=== PATIENT | male | born 1950 | race Caucasian/White ===

== ENCOUNTER 2017-02-04 09:03 | Day surgery (SDC) | payer BC, OTHER ==
[2017-01-30 11:31] VITALS: BMI 29.0
--- NOTE | 2017-01-30 12:06 | PAT Medication Instructions ---
Service Date Jan 30, 2017. Current Home Medication List Levothyroxine Sodium (Levothyroxine Sodium), 175 MCG PO QAM Multiple Vitamins W/ Minerals (Multi Complete), QAM [Collagen Injection] [benicar], 20 MG QAM Medication Instructions For Your Scheduled Surgery Collagen Injection (last done 08/2016) - Hold the following medications the morning of surgery: Benicar, 20 MG QAM Multiple Vitamins W/ Minerals (Multi Complete), QAM - Take the following medications the morning of surgery with a sip of water: Levothyroxine Sodium (Levothyroxine Sodium), 175 MCG PO QAM If you have any questions please call us at [phone] or [phone] ( [place]) or [phone]
[2017-01-30 12:42] LABS: BASO % 0.3 %; BASO ABS # 0.02 K/uL (0-0.2); COMPLETE YES; EOS % 1.5 %; HEMATOCRIT 45.9 % (42-52); IG% 0.1 %; LYMPH % 26.7 %; LYMPH ABS # 2.01 K/uL (1.2-3.4); MEAN CELL VOLUME 89.6 fL (80-100); MEAN CORPUSCULAR HEMOGLOBIN 31.8 pg (25-34); MEAN CORPUSCULAR HGB CONC 35.5 g/dl (32-36); MEAN PLATELET VOLUME 10.5 fL (7.4-10.4); MONO % 8.9 %; NEUT % 62.5 %; PLATELET COUNT 207 K/uL (130-400); RED BLOOD COUNT 5.12 M/uL (4.7-6.1); WHITE BLOOD COUNT 7.52 K/uL (4.8-10.8)
[2017-01-30 12:44] LABS: URINE APPEARANCE CLEAR (CLEAR); URINE BILIRUBIN NEG (NEG); URINE COLOR YELLOW; URINE NITRITE NEG (NEG); URINE SPECIFIC GRAVITY 1.019 (1.000-1.030); UROBILINOGEN NEG (NEG)
[2017-01-30 12:50] LABS: INR 1.1 (0.9-1.1); PARTIAL THROMBOPLASTIN RATIO 1.1; PROTHROMBIN TIME (PATIENT) 11.4 SECONDS (9.0-12.0)
[2017-01-30 12:51] LABS: MANUAL MICROSCOPIC REQUIRED? NO; REVIEW REQ? NO
[2017-01-30 13:00] LABS: BUN/CREATININE RATIO 32.3 (10-20); CALCIUM 8.8 mg/dl (8.5-10.1); CREATININE 0.86 mg/dl (0.60-1.40); POTASSIUM 4.7 mmol/L (3.5-5.1)
--- NOTE | 2017-02-03 15:26 | HISTORY & PHYSICAL EXAMINATION ---
DATE OF ADMISSION: 02/04/2017 HISTORY OF PRESENT ILLNESS: The patient presents with complaints of ongoing right toe pain with hallux rigidus, DJD about his first metatarsophalangeal joint of his right great toe. He is 6 foot 2 inches, 215 pounds, BMI of 29.16, a 66-year-old white male presented with complaints of ongoing pain; nonresponsive to injections, orthotics, activity modification hard sole shoes and presents for cheilectomy, possible resurfacing of the first metatarsophalangeal joint. PAST MEDICAL HISTORY: Significant for heart murmur, hypertension. FAMILY HISTORY: Otherwise unremarkable and noncontributory. SOCIAL HISTORY: The patient denies alcohol, smoking or recreational drug use. PAST SURGICAL HISTORY: Significant for thyroid surgery, bilateral knee surgeries as well as right shoulder surgery. ALLERGIES: SULFA GIVES A RASH. MEDICATIONS: Mevacor 20 mg p.o. daily, levothyroxine 175 mg p.o. daily. PAST MEDICAL HISTORY: Otherwise unremarkable. See history of present illness for pertinent positives. PHYSICAL EXAMINATION: GENERAL: Reveals a very pleasant male with complaints of ongoing pain attributable to his right great toe has been nonresponsive to injections and anti-inflammatories as well as bracing and presents for surgical intervention. HEENT: Unremarkable, atraumatic, normocephalic. HEART: Regular at 68 beats per minute. No murmurs are noted. LUNGS: Clear. No rales, rhonchi, or wheezes noted. ABDOMEN: Soft, nontender, nondistended. Bowel sounds are present in all 4 quadrants. RECTAL: No rectal examination was performed. MUSCULOSKELETAL: Stiffness and pain about the right great toe, first metatarsophalangeal joint. ASSESSMENT AND PLAN: Cheilectomy, possible great toe resurfacing. Postop pain management, DVT prophylaxis, antibiotics.
[~2017-02-04] VITALS: Ht 188 cm; Wt 103.6 kg
[~2017-02-04 09:03] MED LIST: COLLAGEN; LACTATED RINGER'S 1000ML 1,000 ML IV SCH; LEVO175T3 PO; MULT1CAP16; benicar
[2017-02-04 10:09] VITALS: BP 150/85; PULSE 78; TEMP 36.6; O2SAT 96; Ht 188 cm; Wt 103.6 kg
[2017-02-04] MEDS ORDERED: ONDANSETRON INJ 2 MG/ML 2 ML VIAL ONE (10:18)
[2017-02-04] MEDS ORDERED: MIDAZOLAM HCL 1 MG/ML 2ML VIAL ONE ×2 (10:18→11:41)
[2017-02-04] MEDS ORDERED: FENTANYL CITRATE INJ 50 MCG/1 ML 2 ML VIAL ONE (10:18)
[2017-02-04] MEDS ORDERED: LIDOCAINE HCL 2% 2 ML VIAL (20MG/ML) ONE (10:18)
[2017-02-04] MEDS ORDERED: PROPOFOL IV EMULSION 10 MG/ML 20 ML VIAL IV ONE (10:18)
[2017-02-04] MEDS: CEFAZOLIN 2000 MG/60 ML D5W IV SCH ×2 (10:27→12:17)
--- NOTE | 2017-02-04 10:46 | History & Physical Bridge Note ---
H&P Re-Evaluation Bridge Note: I have examined the patient, reviewed the History & Physical and in the interval since the performance of the History & Physical I have noted the following changes of clinical significance: No changes noted
[2017-02-04] MEDS ORDERED: BUPIVACAINE 0.25% 30 ML VIAL ONE (11:17)
[2017-02-04] MEDS ORDERED: BACITRACIN 50000 UNIT VIAL ONE (11:17)
[2017-02-04] MEDS ORDERED: KETOROLAC TROMETHAMINE 30 MG/ML VIAL IV. PRN (11:30)
[2017-02-04] MEDS ORDERED: ATROPINE SULFATE 0.1 MG/ML 5ML SYR IV PRN (11:30)
[2017-02-04] MEDS ORDERED: FENTANYL CITRATE INJ 50 MCG/1 ML 2 ML VIAL IV PRN (11:30)
[2017-02-04] MEDS ORDERED: BUPIVACAINE 0.5 % 5 MG/1 ML PF 10ML VIAL ONE (11:30)
[2017-02-04] MEDS ORDERED: LABETALOL HCL IV 5 MG/ML 20ML IV PRN (11:30)
[2017-02-04] MEDS ORDERED: ONDANSETRON INJ 2 MG/ML 2 ML VIAL IV PRN ×2 (11:30→13:45)
[2017-02-04] MEDS ORDERED: PHENYLEPHRINE 100MCG/ML 5ML SYR ONE (12:42)
[2017-02-04] MEDS ORDERED: ETOMIDATE 2 MG/ML 20 ML VIAL IV ONE (12:42)
[2017-02-04] MEDS ORDERED: EpHEDrine SULFATE 50MG/5ML SYR ONE (12:52)
[2017-02-04] MEDS ORDERED: PHENYLEPHRINE HCL INJ 10 MG/ML VIAL ONE (13:05)
--- NOTE | 2017-02-04 13:23 | [facility] Post Operative Brief Note ---
Immediate Operative Summary Operative Date Feb 04, 2017. Pre-Operative Diagnosis Degenerative joint disease, first metatarsophalangeal joint of right great toe Post-Operative Diagnosis Same as preop Procedure(s) Performed Right Great Toe Cheilectomy, Metatarsalphalangeal Joint Resurfacing Surgeon Dr. Alaniz Cardiology Fellow Surgeon(s) Emmanuel Garcia PA-C Estimated Blood Loss 3 cc Findings djd metatarsal head with dorsal spur Specimens None, as per surgeon Complication(s) None Disposition Recovery Room / PACU
[2017-02-04] MEDS ORDERED: SODIUM CHLORIDE 0.9% 1000ML 1,000 ML IV SCH (13:40)
--- NOTE | 2017-02-04 13:40 | OPERATIVE REPORT ---
DATE OF OPERATION: 02/04/2017 PREOPERATIVE DIAGNOSIS: Degenerative joint disease with hallux rigidus, right first metatarsophalangeal joint, right great toe. POSTOPERATIVE DIAGNOSIS: Same. PROCEDURE: Excision of dorsal spur and metatarsal resurfacing utilizing Arthrosurface HemiCAP size 9.5 mm post with a 1.5 x 3.5 mm offset Arthrosurface. SURGEON: Dr. Alaniz. ROPING TENDER: Jvaier Garcia PA-C, who was necessary for prepping, draping, retraction, wound closure of deep fascia, subQ and skin and was necessary for the case. HISTORY OF PRESENT ILLNESS: The patient is a very pleasant 66-year-old white male who presents with complaints of ongoing pain plus first metatarsophalangeal joint limitation of motion from neutral to 5 degrees of dorsiflexion. He presents with the above findings noted. He has been nonresponsive to conservative management including shoe wear changes, orthotics, rigid inserts, injections. He presents for cheilectomy, possible resurfacing. PROCEDURE: After proper prepping and draping of the right lower extremity, a dorsal midline incision made over the region of the first metatarsophalangeal joint. Dissection was carried down through subcutaneous tissues. Special attention was paid to protect all dorsal sensory nerves. Neurovascular structures were protected at all times. Capsular releases of both medial and lateral were performed. The metatarsal head was evaluated. There was still noted to be fibrocartilage on the proximal phalanx and metatarsal head was eburnated bone. Osteophytes were removed. The capsule was released as well as sesamoids. The metatarsal head was subsequently sized to a 1.5 x 3.5 offset. Subsequently the post was placed after appropriate drilling and fluoroscopic guidance for position of the screw into the center of both the metatarsal head on both AP and lateral planes was noted to be anatomic. The trial component was placed. The trial component gave excellent range of motion with 85 degrees of dorsiflexion, neutral to 5 degrees of plantarflexion. The wound was irrigated with copious amounts of sterile saline solution. The final component was subsequently Herrera Press Fit into the metatarsal head, a 2 mm decompression was also performed. The wound was irrigated with copious amounts of sterile saline solution. The dorsal capsule was closed with 2-0 Vicryl, subQ was closed with 3-0 Vicryl, skin was closed with 4-0 nylon. Sterile compression dressing was placed. The patient was placed in a postoperative low tied boot and was taken to recovery room in stable condition. I attest to the content of the Intraoperative Record and any orders documented therein. Any exceptio ns are noted below.
[2017-02-04] MEDS ORDERED: OXYCODONE/ACETAMINOPHEN 5-325 TAB PO PRN ×2 (13:45)
--- NOTE | 2017-02-04 13:47 | Discharge Instructions ---
Discharge Instructions Date of Service Feb 04, 2017. Visit Reason for Visit: Right Great Toe Osteoarthritis Discharge Discharge Diagnosis / Problem: right great toe resurfacing Discharge Goals Goal(s): Decrease discomfort, Improve function, Increase independence Activity Recommendations Activity Limitations: as noted below Weightbearing Status: Right weightbearing (as tolerated with boot on at all times while ambulating) Anesthesia . Post Anesthesia Instructions: If you have had General Anesthesia or IV Sedation: * Do not drive today. * Resume driving when surgeon permits. * Do not make important decisions or sign legal documents today. * Call surgeon for: 1. Temperature elevations greater than 101 degrees F. 2. Uncontrollable pain. 3. Excessive bleeding. 4. Persistent nausea and vomiting. 5. Medication intolerance (nausea, vomiting or rash). * For nausea and vomiting use only clear liquids such as: tea, soda, bouillon until nausea subsides, then gradually increase diet as tolerated. * If you have any concerns or questions, call your surgeon's office. If physician is unavailable and it is an emergency, call 911 or go to the nearest emergency room. . Instructions / Follow-Up Instructions / Follow-Up ACTIVITY RECOMMENDATIONS: Limitations: may weightbearing as tolerated, but boot must be on at all times while ambulating, may remove boot while not walking. wear boot while sleeping for 2 weeks. SPECIAL CARE INSTRUCTIONS: * Some drainage onto the dressing is normal and is no cause for alarm. * Some swelling is natural especially after walking. * When resting, keep your foot elevated above the level of your heart. * Call [facility] if you notice: -Increased drainage -Fever over 101 degrees F -Severe constant pain BANDAGE: * Leave bandage in place for the first 48 hours after surgery. After 48 hours, you may change dressing daily by simply applying gauze over the incision and re- wrap with ELIAS bandage. after 7 days, you may shower over your incision with mild soap and water. * Keep bandage dry at all times. FOLLOW UP VISIT WITH DR. BAEZ OR JENNIFER GARCIA PAC IN 10-14 DAYS If appointment is not already scheduled: BEGIN PHYSICAL THERAPY Thursday02/06/17, PLEASE CALL FOR YOUR FIRST APPOINTMENT. PRESCRIPTION HAS BEEN PLACED IN YOUR CHART Diet Recommendations Recommended Home Diet: resume previous diet Procedures Procedures Performed: Right Great Toe Cheilectomy, Metatarsalphalangeal Joint Resurfacing Pending Studies Studies pending at discharge: no Medical Emergencies . Who to Call and When: Medical Emergencies: If at any time you feel your situation is an emergency, please call 911 immediately. . Non-Emergent Contact Non-Emergency issues call your: Primary Care Provider, Surgeon . . "Provider Documentation" section prepared by Jennifer Garcia. [place] Drug Monitoring Program Search Results: patient reviewed within database, no issues identified
[2017-02-04] MEDS ORDERED: OXYC-57 PO (13:52)
--- NOTE | 2017-02-04 13:54 | DIAGNOSTIC IMAGING REPORT ---
FLUOROSCOPIC IMAGES OF THE RIGHT FIRST TOE CLINICAL HISTORY: Right great toe cheilectomy COMPARISON STUDY: No previous studies for comparison. Fluoroscopy time: 15 seconds. FINDINGS: 2 fluoroscopic images demonstrate expected findings following excision of spur and metatarsal resurfacing. The hardware is intact. There are no unexpected radiopaque foreign bodies. IMPRESSION: Expected findings within the right first toe, as described above Electronically signed by: Soy Justice M.D. 02/04/2017 1:53 PM Dictated Date/Time: 02/04/2017 1:51 PM
[2017-02-04 14:30] VITALS: BP 128/78; PULSE 69; TEMP 36.5; O2SAT 96
--- NOTE | 2017-02-04 14:38 | Anesthesiology Progress Note ---
Anesthesia Post Op Note Date & Time Feb 04, 2017 at 14:38 Vital Signs Pain Intensity: 0 Vital Signs Past 12 Hours Date Time Temp Pulse Resp B/P Pulse Ox O2 Delivery O2 Flow Rate FiO2 02/04/17 14:20 36.0 68 16 140/83 95 Room Air 02/04/17 14:10 70 17 128/82 92 Room Air 02/04/17 14:00 73 15 130/87 100 Mask 10 02/04/17 13:50 74 16 142/90 100 Mask 10 02/04/17 13:40 36.0 80 16 133/93 98 Mask 10 02/04/17 10:09 36.6 78 20 150/85 96 Room Air Notes Mental Status: alert / awake / arousable, participated in evaluation Pt Amnestic to Procedure: Yes Nausea / Vomiting: adequately controlled Pain: adequately controlled Airway Patency, RR, SpO2: stable & adequate BP & HR: stable & adequate Hydration State: stable & adequate Anesthetic Complications: no major complications apparent
[2017-02-04 15:00] VITALS: BP 133/66; PULSE 67; O2SAT 93
[2017-02-04 15:30] VITALS: BP 125/75; PULSE 68; TEMP 36.3; O2SAT 95
== END 2017-02-04 15:50 | disposition home or self-care (01) ==
LOC: C.ACU 09:03
PROVIDERS: ATTEND Orthopaedic Surgery
DX: M20.21 Hallux rigidus, right foot (principal); M19.071 Primary osteoarthritis, right ankle and foot; I10 Essential (primary) hypertension; Z88.2 Allergy status to sulfonamides; R01.1 Cardiac murmur, unspecified; E89.0 Postprocedural hypothyroidism; Z88.5 Allergy status to narcotic agent; Z91.048 Other nonmedicinal substance allergy status; Z85.850 Personal history of malignant neoplasm of thyroid; E78.5 Hyperlipidemia, unspecified; Z85.828 Personal history of other malignant neoplasm of skin

== ENCOUNTER → 2018-02-24 | Day surgery (SDC) | payer OTHER ==
--- NOTE | 2018-02-16 10:47 | PAT Medication Instructions ---
Service Date Feb 16, 2018. Current Home Medication List Levothyroxine Sodium (Levothyroxine Sodium), 175 MCG PO QAM Multivitamin (Multivitamin), 1 TAB PO QAM [Benicar], 20 MG PO QAM Medication Instructions For Your Scheduled Surgery - Hold the following medications the morning of surgery: [Benicar], 20 MG PO QAM Multivitamin (Multivitamin), 1 TAB PO QAM - Take the following medications the morning of surgery with a sip of water: Levothyroxine Sodium (Levothyroxine Sodium), 175 MCG PO QAM If you have any questions please call us at [phone] or [phone] or [phone]
[2018-02-16 12:10] LABS: BASO % 0.2 %; BASO ABS # 0.02 K/uL (0-0.2); EOS % 1.6 %; EOS ABS # 0.15 K/uL (0-0.5); HEMATOCRIT 44.6 % (42-52); HEMOGLOBIN 16.1 g/dL (14.0-18.0); IG# 0.02 K/uL (0.00-0.02); LYMPH % 26.4 %; LYMPH ABS # 2.43 K/uL (1.2-3.4); MEAN CELL VOLUME 88.3 fL (80-100); MEAN CORPUSCULAR HEMOGLOBIN 31.9 pg (25-34); MEAN CORPUSCULAR HGB CONC 36.1 g/dl (32-36); MEAN PLATELET VOLUME 10.1 fL (7.4-10.4); MONO % 6.2 %; MONO ABS # 0.57 K/uL (0.11-0.59); NEUT % 65.4 %; NEUT ABS # 6.01 K/uL (1.4-6.5); PLATELET COUNT 214 K/uL (130-400); RED CELL DISTRIBUTION WIDTH CV 14.1 % (11.5-14.5); RED CELL DISTRIBUTION WIDTH SD 45.3 fL (36.4-46.3)
--- NOTE | 2018-02-16 12:17 | DIAGNOSTIC IMAGING REPORT ---
CHEST 2 VIEWS ROUTINE CLINICAL HISTORY: 67 years-old Male presenting with pre-op shoulder surgery. TECHNIQUE: PA and lateral views of the chest were obtained. COMPARISON: 09/01/2014. FINDINGS: Atherosclerosis of the aortic arch. Cardiac silhouette normal in size. Calcified granuloma again noted in the periphery of the left midlung. No focal opacity. No large effusion or pneumothorax. Osseous structures normal. Postsurgical changes along the right base of the neck. IMPRESSION: 1. No acute cardiopulmonary disease. Electronically signed by: Jhoan Maciel M.D. 02/16/2018 12:16 PM Dictated Date/Time: 02/16/2018 12:15 PM
[2018-02-16 12:18] LABS: CALCIUM 9.3 mg/dl (8.5-10.1); CREATININE 0.83 mg/dl (0.60-1.40); POTASSIUM 4.5 mmol/L (3.5-5.1)
[2018-02-16 12:20] LABS: PTT PATIENT 26.6 SECONDS (21.0-31.0)
--- NOTE | 2018-02-23 11:47 | History and Physical ---
History & Physical Date Feb 23, 2018. Chief Complaint Patient presents as a 67-year-old white male being seen and evaluated for a right shoulder complaints and exam consistent of a torn rotator cuff impingement syndrome he has positive impingement findings weakness to supraspinatus tendon inability to abduct his arm his MRI findings are consistent with a full-thickness rotator cuff tear impingement findings are consistent of type II-III acromion is been no response to conservative therapy History of Present Illness The patient is a 67 year old male with complaints of ongoing right shoulder pain weakness exam consistent with that of a tear of the supinators tendon weakness to abduction weakness to external rotation crepitation upon range of motion of the shoulder MRI findings consistent with a full-thickness rotator cuff tear Past Medical/Surgical History Patient's past medical history is consistent of a heart murmur as well as heart valve and hypertension issues he has also had a previous history of thyroidectomy 2015 Additional History Hepatic Disease: No Endocrine Disorder: Yes Kidney Disease: No Hypertension: Yes Heart Disease: Yes Bleeding Tendencies: No Infectious Diseases: No Allergies Coded Allergies: Sulfa Antibiotics (Verified Allergy, Intermediate, Rash, 02/16/18) Per patient- does not remember taking or having allergy to. Amlodipine (Verified Allergy, Unknown, per cardio note -UNKNOWN PER PT, 08/26) Dust (Verified Allergy, Unknown, per cardio note -SOB WITH ALOT OF DUST, ) Morphine (Verified Allergy, Unknown, per cardio note -SEE NOTE, 02/16/18) Pt states is not allergic- doesn't remember having or having reaction Home Medications Scheduled Levothyroxine Sodium (Levothyroxine Sodium), 175 MCG PO QAM Multivitamin (Multivitamin), 1 TAB PO QAM [Benicar], 20 MG PO QAM Physical Examination Skin: warm/dry, no rash Eyes: normal inspection, EOMI, sclerae normal ENT: normal ENT inspection, pharynx normal Head: normocephalic, atraumatic Neck: supple, no adenopathy, trachea midline Respiratory/Chest: lungs clear, normal breath sounds, no respiratory distress Cardiovascular: regular rate, rhythm, no edema, no murmur Abdomen / GI: normal bowel sounds, non tender Back: normal inspection Extremities: normal inspection, normal range of motion, + pertinent finding ( Examination of right shoulder reveals her medial limited range of motion pain on abduction forward elevation weakness to muscle testing of the supraspinatus tendon and exam consistent with that of a torn rotator cuff clinically) Neurologic/Psych: no motor/sensory deficits, alert, normal reflexes, oriented x 3 Diagnosis Impingement syndrome right shoulder with rotator cuff tear right shoulder Plan of Treatment Plans for arthroscopy orthoscopic acromioplasty or scopic rotator cuff repair pending findings at time of surgery.
[~2018-02-24] VITALS: Ht 188 cm; Wt 106.5 kg
[~2018-02-24] MED LIST changes: +ATROPINE SULFATE 0.1 MG/ML 5ML SYR IV PRN; +BENICAR PO; +CEFAZOLIN 2000MG IV PUSH 15 ML IV SCH; -COLLAGEN; +DEXAMETHASONE SOD INJ 4 MG/ML VIAL ONE; +EpHEDrine SULFATE INJ 50 MG/ML AMP IV PRN; +EpHEDrine SULFATE INJ 50 MG/ML AMP ONE; +EpINEphrine HCL INJ 1 MG/ML 1ML SYRINGE ONE; +FENTANYL CITRATE INJ 50 MCG/1 ML 2 ML VIAL IV PRN; +FENTANYL CITRATE INJ 50 MCG/1 ML 2 ML VIAL ONE; +GLYCOPYRROLATE INJ 0.2 MG/ML VIAL ONE; +LIDOCAINE HCL 2% 2 ML VIAL (20MG/ML) ONE; +MIDAZOLAM HCL 1 MG/ML 2ML VIAL ONE; +MULT-506 PO; -MULT1CAP16; +NEOSTIGMINE METHYLSULFATE 5 MG/5 ML SYR ONE; +ONDANSETRON INJ 2 MG/ML 2 ML VIAL IV PRN; +ONDANSETRON INJ 2 MG/ML 2 ML VIAL ONE; +OXYC-57 PO; +OXYCODONE/ACETAMINOPHEN 5-325 TAB PO PRN; +PHENYLEPHRINE HCL INJ 10 MG/ML VIAL ONE; +PROPOFOL IV EMULSION 10 MG/ML 20 ML VIAL IV ONE; +ROPIVACAINE 0.5% 5 MG/ML 30 ML VIAL ONE; +SODIUM CHLORIDE 0.9% 1000ML 1,000 ML IV SCH; +SUCCINYLCHOLINE CHLORIDE 20 MG/ML 10 ML VIAL IV ONE; -benicar
[2018-02-24 11:20] VITALS: BP 134/86; PULSE 66; TEMP 36.6; O2SAT 94; Ht 188 cm; Wt 106.5 kg
--- NOTE | 2018-02-24 13:52 | Discharge Instructions ---
Discharge Instructions Date of Service Feb 24, 2018. Visit Reason for Visit: Right Shoulder Impingement Syndrome, Rotator Cuff Discharge Discharge Diagnosis / Problem: right shoulder rotator cuff repair Discharge Goals Goal(s): Decrease discomfort, Improve function, Increase independence Activity Recommendations Activity Limitations: as noted below Lifting Limitations: until after follow-up appointment (no lifting with right arm until instructed by your surgeon) Anesthesia . Post Anesthesia Instructions: If you have had General Anesthesia or IV Sedation: * Do not drive today. * Resume driving when surgeon permits. * Do not make important decisions or sign legal documents today. * Call surgeon for: 1. Temperature elevations greater than 101 degrees F. 2. Uncontrollable pain. 3. Excessive bleeding. 4. Persistent nausea and vomiting. 5. Medication intolerance (nausea, vomiting or rash). * For nausea and vomiting use only clear liquids such as: tea, soda, bouillon until nausea subsides, then gradually increase diet as tolerated. * If you have any concerns or questions, call your surgeon's office. If physician is unavailable and it is an emergency, call 911 or go to the nearest emergency room. . Instructions / Follow-Up Instructions / Follow-Up [facility] DISCHARGE INSTRUCTIONS: ROTATOR CUFF REPAIR SELF CARE INSTRUCTIONS A. You are permitted to loosen your sling/immobilizer to move your elbow, wrist , and hand to prevent stiffness. You should use your well arm (good arm) to assist the operated extremity when trying to raise the arm away from the body, hygiene purposes. Do NOT actively try to use/engage your shoulder muscles in operative arm at this time. You should NOT do overhead activity, lifting, or attempt to reach behind your back. B. You should begin Physical Therapy 2-3 days after discharge from the hospital. You will be provided a prescription for therapy with specific restrictions, if needed, at time of discharge. C. At 48 hours post-operatively, you may change your dressing. (Leave white steri-strips intact if present). Use band-aids and change daily. You are allowed to shower at this time and get the incision area wet, but DO NOT soak or submerge incision area in water. (No baths, swimming pools, hot tubs) D. Do NOT apply soap or any ointment/lotions directly over incision. E. You may use ice as needed to operative shoulder SPECIAL CARE INSTRUCTIONS: VERY IMPORTANT TO READ AND REVIEW A. There are a few signs you need to watch for after you are home. Call [facility] at [phone] if you experience any of the following: a. Increased severe shoulder pain. Some pain is expected especially when you exercise b. Increased swelling in your shoulder or arm; pain or swelling in either upper extremity. (Note: swelling and stiffness is normal and expected for several weeks post op, depending on type of shoulder surgery you had). c. Any fluid or drainage from the incision; redness of the incision. d. Shortness of breath or chest pain. B. Please call [facility] at [phone] if you have any questions or concerns about your operation or recovery. C. Call your physician if: a. Temperature is greater than 101 degrees (F). b. Pain is not relieved by prescribed pain medications. c. Increase drainage or redness from incision. d. Unanswered questions or concerns. D. Pain Medication: a. You will be prescribed pain medication upon discharge that should last till your first post-operative appointment. b. If you experience nausea and/or skin rash, discontinue this medication and contact our office for an alternative medication. c. Caution- narcotic pain medication can cause constipation. FOLLOW UP VISIT: Please call [facility] at [phone] to schedule a follow up appointment 10-14 days from your surgery date. Diet Recommendations Recommended Home Diet: resume previous diet Pending Studies Studies pending at discharge: no Medical Emergencies . Who to Call and When: Medical Emergencies: If at any time you feel your situation is an emergency, please call 911 immediately. . Non-Emergent Contact Non-Emergency issues call your: Primary Care Provider, Surgeon . . "Provider Documentation" section prepared by Javier Garcia. . [place] Drug Monitoring Program Search Results: patient reviewed within database, no issues identified
--- NOTE | 2018-02-24 14:04 | [facility] Post Operative Brief Note ---
Immediate Operative Summary Operative Date Feb 24, 2018. Pre-Operative Diagnosis Impingement syndrome right shoulder with rotator cuff tear right shoulder Post-Operative Diagnosis Impingement syndrome right shoulder with rotator cuff tear right shoulder Procedure(s) Performed Right Shoulder Arthroscopic sucacromial decompression and rotator cuff repair utilizing double row repair with 4.5 helical L4 0.[address] Alaniz Supervisor Sample Surgeon(s) Harry LOMAX Estimated Blood Loss 2 ml Findings Consistent with Post-Op Diagnosis Specimens None Per surgeon Drains None Anesthesia Type General Regional Complication(s) none Disposition Disposition: Recovery Room / PACU
--- NOTE | 2018-02-24 14:07 | [facility] Operative Report ---
Operative Report Operative Date Feb 24, 2018. Pre-Operative Diagnosis Impingement syndrome right shoulder with rotator cuff tear right shoulder Post-Operative Diagnosis Impingement syndrome right shoulder with rotator cuff tear right shoulder Procedure(s) Performed Right Shoulder Arthroscopic sucacromial decompression and rotator cuff repair utilizing double row repair with 4.5 helical L4 0.[address] Alaniz Turf Sales Person Surgeon(s) Harry LOMAX Estimated Blood Loss 2 ml Findings Patient presents with a tear of his rotator cuff is been no response to conservative therapy clinically has weakness to abduction unable to hold his arm in an abducted position pain MRI scan findings really was a full-thickness tear of the supraspinatus tendon with approximately 1.8 cm of retraction is been no response to conservative therapy including injections physical therapy anti-inflammatories presents for rotator cuff repair Specimens None Per surgeon Drains None Anesthesia Type General Regional Complication(s) none Disposition Recovery Room / PACU Indications Patient presents as a very pleasant 67-year-old white male with complaints of pain weakness but his shoulder times Surgeon evidence of a full-thickness rotator cuff tear with approximately 1/2 cm of retraction tear was in front to back 2 cm Description of Procedure After proper prepping draping the right shoulder region are scop examination beginning region of the posterior portal revealed to be evidence of some mild fraying of the anterior of the anterior glenoid labrum the rotator cuff is noted evidence of a full-thickness tear involving supinators tendon approximately 2 cm from the back 1/2 cm retracted there is hyperemic inflammatory changes in the bursa and subacromial space subsequently of the labrum was debrided back to a nice stable margin rotator cuff repaired to the subacromial space decompression acromioplasty was performed to convert a type II acromion to a type I acromion from the rotator cuff having been mobilized and prepared was repaired back to bed of bleeding bone utilizing a 4.5 helical coil double loaded secondarily reinforced with a 4.5 footprint anchor complete repair of the tendon back to bone was performed wound was irrigated with complaints of sterile saline solution meticulous hemostasis obtained to maintain the remaining intra-articular portion of arthroscopy and subacromial decompression presents having been performed operative matter bruise removed skin was closed with 4-0 nylon sterile compression dressing was placed please note Ramsey GUZMAN was radiology assistant was necessary for the case for arm positioning suture management wound closure was necessary for the case I attest to the content of the Intraoperative Record and any orders documented therein. Any exceptions are noted below.
[2018-02-24 15:01] VITALS: BP 110/75; PULSE 82; TEMP 37; O2SAT 92
--- NOTE | 2018-02-24 15:14 | Anesthesiology Progress Note ---
Anesthesia Post Op Note Date & Time Feb 24, 2018 at 15:14 Vital Signs Pain Intensity: 0 Vital Signs Past 12 Hours Date Time Temp Pulse Resp B/P (MAP) Pulse Ox O2 Delivery O2 Flow Rate FiO2 02/24/18 14:55 86 16 121/72 94 Room Air 02/24/18 14:45 36.7 86 18 117/75 92 Room Air 02/24/18 14:35 79 19 124/74 97 Oxymask 10 02/24/18 14:25 77 20 127/81 98 Oxymask 10 02/24/18 14:18 36.3 73 16 141/81 98 Oxymask 10 02/24/18 11:20 36.6 66 16 134/86 (102) 94 Room Air Notes Mental Status: alert / awake / arousable, participated in evaluation Pt Amnestic to Procedure: Yes Nausea / Vomiting: adequately controlled Pain: adequately controlled Airway Patency, RR, SpO2: stable & adequate BP & HR: stable & adequate Hydration State: stable & adequate Anesthetic Complications: no major complications apparent
[2018-02-24 15:31] VITALS: BP 122/71; PULSE 80; TEMP 37; O2SAT 95
== END | disposition home or self-care (01) ==
LOC: C.ACU 10:42
PROVIDERS: ATTEND Orthopaedic Surgery
DX: M75.41 Impingement syndrome of right shoulder (principal); M75.101 Unspecified rotator cuff tear or rupture of right shoulder, not specified as traumatic; I10 Essential (primary) hypertension; M19.90 Unspecified osteoarthritis, unspecified site; E66.9 Obesity, unspecified; Z68.30 Body mass index [BMI] 30.0-30.9, adult; Z88.2 Allergy status to sulfonamides; Z88.8 Allergy status to other drugs, medicaments and biological substances; Z90.89 Acquired absence of other organs; Z79.899 Other long term (current) drug therapy; Z85.828 Personal history of other malignant neoplasm of skin; Z85.850 Personal history of malignant neoplasm of thyroid; Z96.653 Presence of artificial knee joint, bilateral